=== PATIENT | female | born 1975 | race Two or more races ===

== ENCOUNTER 2017-01-25 09:24 | Emergency (ER) | payer MEDICAID, OTHER ==
[~2017-01-25] VITALS: Ht 154.9 cm; Wt 79.4 kg
[2017-01-25] MEDS ORDERED: SODIUM CHLORIDE 0.9% 1,000 ML IV ONE (09:45)
[2017-01-25 10:44] LABS: Albumin 1.8 g/dL (3.4-5.0); Bilirubin, Total 1.8 mg/dL (0.2-1.0); Calcium 8.1 mg/dL (8.5-10.1); Total Protein 7.1 g/dL (6.4-8.2)
[2017-01-25 10:52] LABS: Basophils # (auto) 0 uL; Basophils % (auto) 0.5 % (0.0-2.0); Eosinophils # (auto) 0 uL; Eosinophils % (auto) 0.3 % (0.0-7.0); Hematocrit 38.4 % (36.0-46.0); Hemoglobin 12.5 g/dL (12.2-16.2); Lymphocytes # (auto) 1.9 uL; Lymphocytes % (auto) 23.3 % (10.0-50.0); Mean Corpuscular Hemoglobin 30.8 pg (28.0-32.0); Mean Corpuscular Hgb Conc. 32.5 g/dL (32.0-36.0); Mean Corpuscular Volume 94.7 fL (80.0-100.0); Mean Platelet Volume 9.4 fL (7.4-10.4); Monocytes # (auto) 0.5 uL; Monocytes % (auto) 6.8 % (0.0-12.0); Neutrophils # (auto) 5.5 uL; Neutrophils % (auto) 69.1 % (37.0-80.0); Platelet Count (auto) 213 10^3/uL (140-450); Red Cell Distribution Width 15.6 % (11.6-16.0)
[2017-01-25 11:58] LABS: Urine Color Orange (Yellow); Urine Glucose Normal (Normal); Urine Hyaline Cast MANY /lpf (0 - 2); Urine Mucus FEW (None Seen); Urine Nitrite Negative (Negative); Urine RBC 7 /hpf (0 - 4); Urine Squamous Epithelial Cell MOD /hpf (<5); Urine pH 6.5 (5.0-8.0)
[2017-01-25 11:59] LABS: Urine Blood 2+ /uL (Negative); Urine Ketone 1+ (Negative)
[2017-01-25 12:13] LABS: Urine Bilirubin 2+ (Negative)
[2017-01-25 12:44] VITALS: BP 161/100
[2017-01-25] MEDS ORDERED: diphenhdrAMINE HCL 25 MG CAP PO ONE (13:45)
[2017-01-25] MEDS ORDERED: LORazepam 0.5 MG TAB PO ONE (13:45)
== END 2017-01-25 14:00 | disposition home or self-care (01) ==
LOC: EDBD 09:33 → ER 09:33
DX: O99.312 Alcohol use complicating pregnancy, second trimester (principal); F10.129 Alcohol abuse with intoxication, unspecified; Z3A.26 26 weeks gestation of pregnancy; Z88.6 Allergy status to analgesic agent
CPT/HCPCS: 36415; 76805; 80053; 81001; 82962; 84702; 85025; 96360; 99285; G0434; J7030